=== PATIENT | male | born 1975 | race African-American/Black ===

== ENCOUNTER 2017-08-08 08:08 | Emergency (ER) | payer MEDICAID ==
[~2017-08-08] VITALS: Ht 182.9 cm; Wt 86.4 kg
[2017-08-08] MEDS ORDERED: ZIPR40CA2 PO (08:14)
[2017-08-08] MEDS ORDERED: GABA-531 PO (08:14)
[2017-08-08] MEDS ORDERED: QUET50TA PO (08:14)
[2017-08-08] MEDS ORDERED: MIRT30 PO (08:14)
[2017-08-08] MEDS ORDERED: LORazepam 1 MG TABLET PO ONE (08:30)
[2017-08-08 08:31] LABS: BASOPHILS % (AUTO) 0.3 % (0.0-2.0); EOSINOPHILS % (AUTO) 0.1 % (1.0-6.0); HEMATOCRIT 49.2 % (41-53); HEMOGLOBIN 16.8 g/dL (13.5-17.5); LYMPHOCYTES # (AUTO) 1.4 K/uL (1.0-4.8); LYMPHOCYTES % (AUTO) 13.1 % (22.0-44.0); MEAN CORPUSCULAR HEMOGLOBIN 31.8 pg (26.0-34.0); MEAN CORPUSCULAR HGB CONC 34.1 G/dL (31.0-37.0); MEAN CORPUSCULAR VOLUME 93 fL (80-100); MONOCYTES # (AUTO) 0.9 K/uL (0.1-1.0); NEUTROPHILS # (AUTO) 8.4 K/uL (1.8-7.7); NEUTROPHILS % (AUTO) 78.5 % (40.0-70.0); PLATELET COUNT (AUTO) 328 K/uL (150-450); RED BLOOD CELL COUNT(AUTO) 5.29 MIL/uL (4.50-5.90); RED CELL DISTRIBUTION WIDTH 14.9 % (11.5-14.5); WHITE BLOOD COUNT (AUTO) 10.7 K/uL (4.5-11.0)
[2017-08-08 08:40] LABS: ANION GAP 14 mmol/L (8-16); CALCIUM, TOTAL 9.4 mg/dL (8.8-10.5); CARBON DIOXIDE 25 mmol/L (22-29); CHLORIDE 102 mmol/L (98-107); CREATININE 1.06 mg/dL (0.60-1.30); GLOMERULAR FILTR. RATE CALC > 60 mL/min (>60); POTASSIUM 3.6 mmol/L (3.5-5.1); SODIUM SERUM 141 mmol/L (136-145); UREA NITROGEN, BLOOD 6 mg/dL (7-18)
[2017-08-08 08:46] LABS: ALANINE AMINOTRANSFERASE 36 U/L (12-78); ALBUMIN 4.6 g/dL (3.4-5.0); ASPARTATE AMINOTRANSFERASE 18 U/L (15-37); BILIRUBIN,TOTAL 0.4 mg/dL (0.1-1.0); TOTAL PROTEIN, SERUM 8.8 g/dL (6.4-8.2)
[2017-08-08 09:42] VITALS: BP 168/89
== END 2017-08-08 09:51 | disposition home or self-care (01) ==
LOC: EMS 08:10
DX: F10.10 Alcohol abuse, uncomplicated (principal); F17.210 Nicotine dependence, cigarettes, uncomplicated; F15.10 Other stimulant abuse, uncomplicated; F20.9 Schizophrenia, unspecified; F32.9 Major depressive disorder, single episode, unspecified; F41.9 Anxiety disorder, unspecified; Z88.1 Allergy status to other antibiotic agents
CPT/HCPCS: 36415; 80053; 80307; 85025; 99284; G0480

== ENCOUNTER 2019-01-10 14:29 | Inpatient (IN) | payer MEDICAID ==
[~2019-01-10] VITALS: Ht 180.3 cm; Wt 88.5 kg
[~2019-01-10 14:29] MED LIST: GABA-531 PO; MIRT30 PO; QUET50TA PO; ZIPR40CA2 PO
[2019-01-10] MEDS ORDERED: QUET100T PO ×2 (17:59)
[2019-01-10] MEDS ORDERED: MIRT15 PO (17:59)
[2019-01-10] MEDS ORDERED: QUET25TA PO (17:59)
[2019-01-10] MEDS ORDERED: HALOPERIDOL 5 MG TABLET PO PRN (18:00)
[2019-01-10 18:15] VITALS: BP 117/60
[2019-01-10 18:50] VITALS: BP 117/60
[2019-01-10 19:15] VITALS: BP 106/62
[2019-01-10] MEDS ORDERED: PETROLATUM,WHITE 71 GM JELLY TP PRN (19:30)
[2019-01-10] MEDS ORDERED: ACETAMINOPHEN 325 MG TABLET PO PRN (19:30)
[2019-01-10] MEDS ORDERED: DOCUSATE SODIUM 100 MG CAPSULE PO PRN (19:30)
[2019-01-10] MEDS ORDERED: GuaiFENesin/D-METHORPHAN [SUGAR-FREE] 200-20MG/10 ML SYRUP UDCUP PO PRN (19:30)
[2019-01-10] MEDS ORDERED: CloNIDine HCL 0.1 MG TABLET PO PRN (19:30)
[2019-01-10] MEDS ORDERED: MAG HYDROX/AL HYDROX/SIMETH ES 30 ML SUSPENSION UDCUP PO PRN (19:30)
[2019-01-10] MEDS ORDERED: MAGNESIUM HYDROXIDE SUSPENSION 30 ML UDCUP PO PRN (19:30)
[2019-01-10] MEDS ORDERED: ALBUTEROL SULFATE HFA 90 MCG/PUFF 8 GM INHALER IH PRN (19:30)
[2019-01-10] MEDS ORDERED: NICOTINE 14 MG/24 HOUR PATCH TD PRN (19:30)
[2019-01-10] MEDS ORDERED: LOPERAMIDE HCL 2 MG CAPSULE PO PRN (19:30)
[2019-01-10] MEDS ORDERED: ONDANSETRON HCL 4 MG TABLET PO PRN (19:30)
[2019-01-10] MEDS: LORazepam 2 MG TABLET PO PRN (19:44)
[2019-01-10] MEDS: IBUPROFEN 400 MG TABLET PO PRN (19:44)
[2019-01-10 20:15] VITALS: BP 110/69
[2019-01-10 21:05] VITALS: BP 96/58
[2019-01-10] MEDS: ZOLPIDEM TARTRATE 10 MG TABLET PO PRN (21:33)
[2019-01-10 22:21] VITALS: BP 102/56
[2019-01-11 02:15] VITALS: BP_SYST 110; BP_SYST 124; BP_DIAS 62; BP_DIAS 80
[2019-01-11] MEDS: LORazepam 2 MG TABLET PO PRN (05:41)
[2019-01-11 06:15] VITALS: BP 124/80
[2019-01-11 08:40] LABS: BASOPHILS % (AUTO) 0.3 % (0.0-2.0); EOSINOPHILS % (AUTO) 2.1 % (1.0-6.0); HEMATOCRIT 45.1 % (41-53); HEMOGLOBIN 15.5 g/dL (13.5-17.5); LYMPHOCYTES # (AUTO) 1.5 K/uL (1.0-4.8); LYMPHOCYTES % (AUTO) 23.6 % (22.0-44.0); MEAN CORPUSCULAR HEMOGLOBIN 31.8 pg (26.0-34.0); MEAN CORPUSCULAR HGB CONC 34.4 G/dL (31.0-37.0); MEAN CORPUSCULAR VOLUME 92 fL (80-100); MONOCYTES # (AUTO) 0.6 K/uL (0.1-1.0); MONOCYTES % (AUTO) 9.4 % (2.0-9.0); NEUTROPHILS % (AUTO) 64.6 % (40.0-70.0); PLATELET COUNT (AUTO) 229 K/uL (150-450); RED BLOOD CELL COUNT(AUTO) 4.88 MIL/uL (4.50-5.90); RED CELL DISTRIBUTION WIDTH 14.3 % (11.5-14.5)
[2019-01-11 09:05] VITALS: BP 100/69
[2019-01-11 09:33] LABS: ALANINE AMINOTRANSFERASE 41 U/L (12-78); ALBUMIN 3.3 g/dL (3.4-5.0); ALKALINE PHOSPHATASE 57 U/L (46-116); ANION GAP 8 mmol/L (8-16); ASPARTATE AMINOTRANSFERASE 22 U/L (15-37); BILIRUBIN,TOTAL 0.6 mg/dL (0.1-1.0); CALCIUM, TOTAL 9.1 mg/dL (8.8-10.5); CARBON DIOXIDE 30 mmol/L (22-29); CHLORIDE 102 mmol/L (98-107); CHOLESTEROL 169 mg/dL (131-200); CREATININE 1.03 mg/dL (0.60-1.30); FREE T4 (FREE THYROXINE) 0.94 ng/dL (0.76-1.46); GLOMERULAR FILTR. RATE CALC > 60 mL/min (>60); GLUCOSE,RANDOM 103 mg/dL (70-110); HDL CHOLESTEROL 56 mg/dL (40-60); LDL CHOL (CALC.) 82 mg/dL (0-130); POTASSIUM 4.1 mmol/L (3.5-5.1); SODIUM SERUM 140 mmol/L (136-145); THYROID STIMULATING HORMONE 1.52 uIU/mL (0.36-3.74); TOTAL PROTEIN, SERUM 6.7 g/dL (6.4-8.2); TRIGLYCERIDES 155 mg/dL (15-150); UREA NITROGEN, BLOOD 13 mg/dL (7-18)
[2019-01-11 10:33] VITALS: BP 127/73
[2019-01-11] MEDS ORDERED: LORazepam 2 MG TABLET PO PRN (12:15)
[2019-01-11] MEDS ORDERED: CYANOCOBALAMIN 1,000 MCG/ML VIAL IM ONE (12:15)
[2019-01-11] MEDS: FOLIC ACID 1 MG TABLET PO SCH (12:30)
[2019-01-11] MEDS: GABAPENTIN 300 MG CAPSULE PO SCH ×2 (12:30→17:00)
[2019-01-11] MEDS: MULTIVITAMINS WITH MINERALS, THERAPEUTIC TABLET PO SCH (12:30)
[2019-01-11] MEDS: THIAMINE HCL 100 MG TABLET PO SCH (17:00)
[2019-01-11 17:04] VITALS: BP 121/72
[2019-01-11 18:15] VITALS: BP 123/75
[2019-01-11] MEDS: QUEtiapine FUMARATE 100 MG TABLET PO SCH (21:20)
[2019-01-12 00:25] VITALS: BP 112/70
[2019-01-12] MEDS: IBUPROFEN 400 MG TABLET PO PRN (01:03)
[2019-01-12 08:06] VITALS: BP 114/72
[2019-01-12] MEDS: THIAMINE HCL 100 MG TABLET PO SCH ×2 (08:08→16:12)
[2019-01-12] MEDS: FOLIC ACID 1 MG TABLET PO SCH (08:08)
[2019-01-12] MEDS: QUEtiapine FUMARATE 100 MG TABLET PO SCH ×2 (08:08→20:32)
[2019-01-12] MEDS: MULTIVITAMINS WITH MINERALS, THERAPEUTIC TABLET PO SCH (08:08)
[2019-01-12] MEDS: GABAPENTIN 300 MG CAPSULE PO SCH ×3 (08:08→16:13)
[2019-01-12] MEDS: LORazepam 2 MG TABLET PO SCH ×4 (08:08→20:32)
[2019-01-12] MEDS: BuPROPion HCL XL 150 MG ER TABLET PO SCH (13:25)
[2019-01-12 16:15] VITALS: BP 107/73
[2019-01-13 00:10] VITALS: BP 120/81
[2019-01-13 08:23] VITALS: BP 114/71
[2019-01-13] MEDS: MULTIVITAMINS WITH MINERALS, THERAPEUTIC TABLET PO SCH (08:39)
[2019-01-13] MEDS: BuPROPion HCL XL 150 MG ER TABLET PO SCH (08:39)
[2019-01-13] MEDS: FOLIC ACID 1 MG TABLET PO SCH (08:40)
[2019-01-13] MEDS: LORazepam 2 MG TABLET PO SCH ×4 (08:40→20:16)
[2019-01-13] MEDS: QUEtiapine FUMARATE 100 MG TABLET PO SCH ×2 (08:40→20:17)
[2019-01-13] MEDS: GABAPENTIN 300 MG CAPSULE PO SCH ×3 (08:40→16:13)
[2019-01-13] MEDS: THIAMINE HCL 100 MG TABLET PO SCH ×2 (08:40→16:13)
[2019-01-13] MEDS ORDERED: QUEtiapine FUMARATE 100 MG TABLET PO PRN (16:15)
[2019-01-13 16:54] VITALS: BP 114/79
[2019-01-13] MEDS: ZOLPIDEM TARTRATE 10 MG TABLET PO PRN (23:34)
[2019-01-14] VITALS (7 sets, daily range): BP systolic 116–121; BP diastolic 76–91
[2019-01-14] MEDS: LORazepam 2 MG TABLET PO PRN ×2 (00:37→03:00)
[2019-01-14] MEDS ORDERED: LORazepam 1 MG TABLET PO PRN (07:00)
[2019-01-14] MEDS: LORazepam 1 MG TABLET PO SCH ×4 (08:45→20:24)
[2019-01-14] MEDS: FOLIC ACID 1 MG TABLET PO SCH (08:45)
[2019-01-14] MEDS: GABAPENTIN 300 MG CAPSULE PO SCH ×3 (08:45→16:57)
[2019-01-14] MEDS: BuPROPion HCL XL 150 MG ER TABLET PO SCH (08:45)
[2019-01-14] MEDS: QUEtiapine FUMARATE 100 MG TABLET PO SCH ×3 (08:45→20:24)
[2019-01-14] MEDS: THIAMINE HCL 100 MG TABLET PO SCH ×2 (08:45→16:57)
[2019-01-14] MEDS: MULTIVITAMINS WITH MINERALS, THERAPEUTIC TABLET PO SCH (08:45)
[2019-01-15 00:22] VITALS: BP 130/87
[2019-01-15 00:33] VITALS: BP 130/87
[2019-01-15] MEDS ORDERED: LORazepam 1 MG TABLET PO PRN (07:00)
[2019-01-15] MEDS: FOLIC ACID 1 MG TABLET PO SCH (08:19)
[2019-01-15] MEDS: THIAMINE HCL 100 MG TABLET PO SCH ×2 (08:20→16:52)
[2019-01-15] MEDS: MULTIVITAMINS WITH MINERALS, THERAPEUTIC TABLET PO SCH (08:20)
[2019-01-15] MEDS: GABAPENTIN 300 MG CAPSULE PO SCH ×3 (08:20→16:52)
[2019-01-15] MEDS: BuPROPion HCL XL 150 MG ER TABLET PO SCH (08:21)
[2019-01-15] MEDS: QUEtiapine FUMARATE 25 MG TABLET PO SCH (08:22)
[2019-01-15 12:46] VITALS: BP 108/71
[2019-01-15] MEDS: QUEtiapine FUMARATE 100 MG TABLET PO SCH ×2 (13:02→20:36)
[2019-01-15 16:00] VITALS: BP 113/81
[2019-01-15 16:03] VITALS: BP 113/81
[2019-01-16 06:20] VITALS: BP 110/68
[2019-01-16 08:15] VITALS: BP 108/71
[2019-01-16] MEDS: QUEtiapine FUMARATE 25 MG TABLET PO SCH (08:39)
[2019-01-16] MEDS: BuPROPion HCL XL 150 MG ER TABLET PO SCH (08:39)
[2019-01-16] MEDS: THIAMINE HCL 100 MG TABLET PO SCH ×2 (08:39→16:23)
[2019-01-16] MEDS: MULTIVITAMINS WITH MINERALS, THERAPEUTIC TABLET PO SCH (08:40)
[2019-01-16] MEDS: GABAPENTIN 300 MG CAPSULE PO SCH ×3 (08:40→16:23)
[2019-01-16] MEDS: FOLIC ACID 1 MG TABLET PO SCH (08:40)
[2019-01-16] MEDS: QUEtiapine FUMARATE 100 MG TABLET PO SCH ×2 (12:21→20:15)
[2019-01-16 16:13] VITALS: BP 107/78
[2019-01-16] MEDS: IBUPROFEN 400 MG TABLET PO PRN (16:40)
[2019-01-16] MEDS: ZOLPIDEM TARTRATE 10 MG TABLET PO PRN (20:18)
[2019-01-17 01:22] VITALS: BP 103/64
[2019-01-17] MEDS ORDERED: GABA-531 PO (03:46)
[2019-01-17] MEDS ORDERED: FOLI1 PO (03:48)
[2019-01-17] MEDS ORDERED: BUPR-93 PO (03:48)
[2019-01-17] MEDS ORDERED: MULT1TAB28 PO (03:50)
[2019-01-17] MEDS ORDERED: THIA100T67 PO (03:52)
[2019-01-17 08:35] VITALS: BP 108/76
[2019-01-17] MEDS ORDERED: THIAMINE HCL 100 MG TABLET PO SCH ×2 (09:00)
[2019-01-17] MEDS ORDERED: GABAPENTIN 300 MG CAPSULE PO SCH ×2 (09:00)
[2019-01-17] MEDS ORDERED: QUEtiapine FUMARATE 25 MG TABLET PO SCH (09:00)
[2019-01-17] MEDS ORDERED: MULTIVITAMINS WITH MINERALS, THERAPEUTIC TABLET PO SCH (09:00)
[2019-01-17] MEDS ORDERED: [UNRECOGNIZED DRUG - OTHER] PO SCH (09:00)
[2019-01-17] MEDS ORDERED: BuPROPion HCL XL 150 MG ER TABLET PO SCH ×2 (09:00)
[2019-01-17] MEDS ORDERED: FOLIC ACID 1 MG TABLET PO SCH ×2 (09:00)
== END 2019-01-17 08:00 | disposition home or self-care (01) | DRG 750 ==
LOC: B2S 18:03
PROVIDERS: ADMIT Psychiatry & Neurology Psychiatry; ATTEND Psychiatry & Neurology Psychiatry
DX: F25.1 Schizoaffective disorder, depressive type (principal); I95.9 Hypotension, unspecified; R45.851 Suicidal ideations; E78.5 Hyperlipidemia, unspecified; F19.90 Other psychoactive substance use, unspecified, uncomplicated; F10.20 Alcohol dependence, uncomplicated; F41.9 Anxiety disorder, unspecified; R45.87 Impulsiveness; F99 Mental disorder, not otherwise specified; Z59.0 Homelessness; Z88.1 Allergy status to other antibiotic agents; Z91.5 Personal history of self-harm
CPT/HCPCS: 83036; 84439; 84443; J3420

== ENCOUNTER 2020-05-11 20:30 | Emergency (ER) | payer MEDICAID, OTHER ==
[~2020-05-11] VITALS: Ht 185.4 cm; Wt 81.8 kg
[~2020-05-11 20:30] MED LIST changes: +BUPR-93 PO; +FOLI-130 PO; +GABA-1181 PO; -GABA-531 PO; -MIRT30 PO; +MULT1TAB28 PO; +QUET100T PO; +QUET25TA PO; -QUET50TA PO; +THIA100T67 PO; -ZIPR40CA2 PO
[2020-05-11] MEDS ORDERED: LORazepam 2 MG/ML VIAL IVP ONE ×2 (21:15→22:00)
[2020-05-11] MEDS ORDERED: SODIUM CHLORIDE 0.9% 100 ML ONE (21:32)
[2020-05-11] MEDS ORDERED: IOVERSOL 350 MG/ML 100 ML VIAL ONE (21:33)
[2020-05-11 21:40] LABS: BASOPHILS % (AUTO) 0.5 % (0.0-2.0); EOSINOPHILS % (AUTO) 2.5 % (1.0-6.0); HEMATOCRIT 39.5 % (41-53); LYMPHOCYTES # (AUTO) 1.5 K/uL (1.0-4.8); LYMPHOCYTES % (AUTO) 17.5 % (22.0-44.0); MEAN CORPUSCULAR HEMOGLOBIN 30.6 pg (26.0-34.0); MEAN CORPUSCULAR HGB CONC 32.9 G/dL (31.0-37.0); MEAN CORPUSCULAR VOLUME 93 fL (80-100); MONOCYTES # (AUTO) 0.9 K/uL (0.1-1.0); MONOCYTES % (AUTO) 10.2 % (2.0-9.0); NEUTROPHILS # (AUTO) 6.1 K/uL (1.8-7.7); NEUTROPHILS % (AUTO) 69.3 % (40.0-70.0); PLATELET COUNT (AUTO) 215 K/uL (150-450); RED BLOOD CELL COUNT(AUTO) 4.24 MIL/uL (4.50-5.90); RED CELL DISTRIBUTION WIDTH 12.9 % (11.5-14.5)
[2020-05-11 21:42] LABS: ANION GAP 9 mmol/L (8-16); CALCIUM, TOTAL 8.5 mg/dL (8.8-10.5); CARBON DIOXIDE 29 mmol/L (22-29); CHLORIDE 102 mmol/L (98-107); CREATININE 0.79 mg/dL (0.60-1.30); GLOMERULAR FILTR. RATE CALC > 60 mL/min (>60); GLUCOSE,RANDOM 99 mg/dL (70-110); POTASSIUM 3.3 mmol/L (3.5-5.1); SODIUM SERUM 140 mmol/L (136-145); UREA NITROGEN, BLOOD 15 mg/dL (7-18)
[2020-05-11 21:44] LABS: INR 1.1 (0.9-1.1); PROTHROMBIN TIME 11.2 SEC (9.4-11.6)
[2020-05-11 21:48] LABS: ALANINE AMINOTRANSFERASE 225 U/L (12-78); ALBUMIN 3.6 g/dL (3.4-5.0); ALKALINE PHOSPHATASE 62 U/L (46-116); ASPARTATE AMINOTRANSFERASE 120 U/L (15-37); BILIRUBIN,TOTAL 1.2 mg/dL (0.1-1.0); TOTAL PROTEIN, SERUM 6.9 g/dL (6.4-8.2)
[2020-05-11] MEDS ORDERED: PERTUSS(ACELL),DIPH,TET VAC/PF 0.5 ML VIAL IM ONE (22:15)
[2020-05-11 22:20] LABS: AMPHET/METH SCREEN,URINE POSITIVE (NEGATIVE); APPEARANCE,URINE CLEAR (CLEAR); BARBITURATE SCREEN, URINE NEGATIVE (NEGATIVE); BENZODIAZEPINES SCREEN,URINE NEGATIVE (NEGATIVE); BILIRUBIN,URINE NEGATIVE (NEGATIVE); CANNABINOID SCREEN,URINE NEGATIVE (NEGATIVE); COCAINE SCREEN,URINE NEGATIVE (NEGATIVE); GLUCOSE, URINE (UA) NEGATIVE (NEGATIVE); KETONES,URINE NEGATIVE (NEGATIVE); LEUKOCYTE ESTERASE ,URINE NEGATIVE (NEGATIVE); METHADONE SCREEN, URINE NEGATIVE (NEGATIVE); NITRATE,URINE NEGATIVE (NEGATIVE); OCCULT BLOOD,URINE NEGATIVE (NEGATIVE); OPIATE SCREEN,URINE POSITIVE (NEGATIVE); PH,URINE 5.5 (5.0-8.0); PROTEIN,URINE NEGATIVE (NEGATIVE)
[2020-05-11 22:21] LABS: PHENCYCLIDINE SCREEN,URINE NEGATIVE (NEGATIVE)
[2020-05-12] MEDS ORDERED: ACETAMINOPHEN 325 MG TABLET PO ONE (05:45)
[2020-05-12 06:37] VITALS: BP 107/58
== END 2020-05-12 07:10 | disposition home or self-care (01) ==
LOC: EMS 20:30
DX: S20.211A Contusion of right front wall of thorax, initial encounter (principal); S00.83XA Contusion of other part of head, initial encounter; S80.02XA Contusion of left knee, initial encounter; S80.01XA Contusion of right knee, initial encounter; M54.2 Cervicalgia; R10.84 Generalized abdominal pain; F17.210 Nicotine dependence, cigarettes, uncomplicated; F41.9 Anxiety disorder, unspecified; F32.9 Major depressive disorder, single episode, unspecified; F20.9 Schizophrenia, unspecified; Z20.828 Contact with and (suspected) exposure to other viral communicable diseases; Z88.1 Allergy status to other antibiotic agents; W10.9XXA Fall (on) (from) unspecified stairs and steps, initial encounter; Y93.89 Activity, other specified; Y92.89 Other specified places as the place of occurrence of the external cause; Y99.8 Other external cause status
CPT/HCPCS: 36415; 70450; 71260; 72125; 73562 ×2; 73660; 74177; 80053; 80307; 81003; 85025; 85610; 85730; 90471; 90715; 96374; 99285; G0480; J2060; J7050; Q9967; U0003; 72193; 74160